=== PATIENT | female | born 1975 | race Hispanic/Latino ===

== ENCOUNTER 2018-04-29 10:39 | Outpatient (CLI) | payer OTHER ==
--- NOTE | 2018-05-04 10:41 | MMO ---
BILATERAL DIGITAL SCREENING MAMMOGRAMS: Date: 04/29/18 This patient's mammogram was interpreted with the assistance of computer-aided detection. Comparison made with exams of 10/01/17 and 04/23/16. FINDINGS: There are scattered fibroglandular densities. No suspicious masses, calcifications, or architectural distortion are seen. A few benign-appearing calcifications are noted. IMPRESSION: BIRADS 2: Benign Finding(s) Return to annual mammographic screening. POS: [facility]
== END 2018-04-29 10:40 | disposition home or self-care (01) ==
LOC: SCSMAMMO 10:39
PROVIDERS: ATTEND Family Medicine
DX: Z12.31 Encounter for screening mammogram for malignant neoplasm of breast (principal)
CPT/HCPCS: 77067

== ENCOUNTER 2018-05-03 22:30 | Inpatient (IN) | payer OTHER ==
[2018-05-03 22:56] LABS: #Basophils 0.1 thou/uL (0.0-0.2); #Eosinphils 0.1 thou/uL (0.0-0.7); #Lymphocytes 3.3 thou/uL (1.20-3.40); #Monocytes 0.4 thou/uL (0.11-0.59); #Neutrophils 4.6 thou/uL (1.40-6.50); %Basophils 0.7 % (0.0-1.0); %Eosinophils 1.6 % (0.0-10.0); %Lymphocytes 38.5 % (21.0-51.0); %Monocytes 5.2 % (0.0-10.0); %Neutrophils 54.1 % (42.0-75.0); Hemoglobin 14.7 g/dL (12.0-16.0); Mean Corpuscular HGB CONC 34.2 g/dL (32.0-36.0); Mean Corpuscular Hemoglobin 31.2 pg (27.0-31.0); Mean Platelet Volume 8.5 fL (7.4-10.4); Platelet Count 282 thou/uL (130-400); RBC Distribution Width 12.1 % (11.5-14.5); Red Blood Cell (RBC) Count 4.73 mill/uL (4.20-5.40); White Blood Cell (WBC) Count 8.5 thou/uL (4.8-10.8)
[2018-05-03 23:21] LABS: ALT (SGPT) 34 U/L (8-55); AST (SGOT) 26 U/L (5-34); Albumin 4.4 g/dL (3.5-5.0); Alkaline Phosphatase 132 U/L (40-150); Anion Gap 12 mmol/L (10-20); BUN (Urea Nitrogen) 7 mg/dL (7.0-18.7); Bilirubin, Total 0.5 mg/dL (0.2-1.2); CK (CPK) 112 U/L (29-168); Calc. Creatinine Clearance 0 mL/min (70-130); Carbon Dioxide 25 mmol/L (22-29); Chloride 108 mmol/L (98-107); Estimated GFR-MDRD 87; Globulin 3.4 g/dL (2.4-3.5); Glucose 97 mg/dL (70-105); Potassium 3.6 mmol/L (3.5-5.1); Protein, Total 7.8 g/dL (6.0-8.3); Sodium 141 mmol/L (136-145)
[2018-05-03 23:26] LABS: CKMB 0.8 ng/mL (0-6.6); Troponin I Less than 0.010 ng/mL (< 0.028)
--- NOTE | 2018-05-03 23:46 | RAD ---
ONE VIEW CHEST: HISTORY: Pain. COMPARISON: None. FINDINGS: Normal cardiac silhouette. Pulmonary vessels and hilum are normal. Costophrenic angles are clear. Lung volumes are slightly diminished, likely due to poor inspiratory effort. No consolidation or mas s. No pneumothorax or osseous abnormalities. IMPRESSION: No acute cardiopulmonary process. POS: [facility]
[2018-05-04] MEDS ORDERED: Enoxaparin Sodium 80 MG/0.8 ML SYRINGE ONE (02:23)
[2018-05-04 02:59] LABS: PTT 27.8 SEC (22.9-36.1); Prothrombin Time 13.5 SEC (12.0-14.7)
[2018-05-04] MEDS ORDERED: Ondansetron ODT 4 MG TAB ONE ×2 (02:59→03:23)
--- NOTE | 2018-05-04 08:45 | HP ---
DATE OF ADMISSION: 05/04/2018 CHIEF COMPLAINT: Chest pain, shortness of breath. HISTORY OF PRESENT ILLNESS: This is a 42-year-old female patient with a past history of fibromyalgia , who presented to the emergency department with sudden onset of shortness of breath and left-sided c hest pain. The patient states that she has been in her usual state of health when yesterday afternoo n she developed nausea and dry mouth. The symptoms quickly have progressed to shortness of breath an d chest pain on her left chest. The shortness of breath continued to worsen. She developed left-bhavna ed chest pain, left shoulder pain, presented to the emergency department for evaluation. In the ER, she was found to have a pulmonary embolism per Radiology as well as a left breast mass. The patient states that her symptoms improved with the morphine. She is now comfortable and now being admitted f or further evaluation and treatment. PAST MEDICAL HISTORY: Irritable bowel, fibromyalgia, possible sleep apnea. MEDICATIONS: Include tramadol p.r.n., ropinirole p.r.n. restless legs. PAST SURGICAL HISTORY: Cholecystectomy, hysterectomy. SOCIAL HISTORY: No smoking. Occasional alcohol and occasional marijuana. She is with child julian. FAMILY HISTORY: She admits a maternal aunt with clotting problems with blood clots in her legs, but no heart disease, no diabetes. No known cancer history in her family. REVIEW OF SYSTEMS: As per the history of present illness. General: She denies any recent fevers, c hills, or recent illness. HEENT: Denies headache, visual or hearing changes. Cardiac: As per the history of present illness. No palpitations. Pulmonary: No cough or hemoptysis. Gastrointestinal: No nausea, vomiting, abdominal pain, melena, hematochezia. Genitourinary: Denies dysuria or hemat uria. Neurologic: Denies weakness, seizures, syncope. PHYSICAL EXAMINATION: VITAL SIGNS: Temperature 98.1, pulse of 73, respirations 14, blood pressure 117/65, pulse ox is 96% on room air. GENERAL: She is awake and alert, in no acute distress. Speech is clear. Mucosa is moist. NECK: Supple. HEART: Regular rate and rhythm. LUNGS: With diminished breath sounds, but clear. ABDOMEN: Soft. EXTREMITIES: No calf tenderness. No clubbing or cyanosis, no edema. LABORATORY DATA: Chest x-ray was normal. EKG reveals normal sinus rhythm. Cardiac enzymes are nega tive. Sodium 141, potassium 3.6, chloride 108, CO2 of 25, BUN and creatinine 7 and 0.73, serum gluco se of 97. White blood cell count 8,500, hemoglobin hematocrit 14.7 and 43.1, platelets of 282. PT a nd PTT were normal. D-dimer was elevated at 1.34. Again, CT angiogram, per the emergency room physi yusuf, revealed pulmonary embolism as well as a breast mass. ASSESSMENT AND PLAN: This is a 42-year-old female with sudden onset of chest pain and shortness of b reath consistent with pulmonary embolism. 1. Pulmonary embolism. We will continue subcutaneous Lovenox. Consult Pulmonary for evaluation. O btain a thrombosis panel as well as venous Doppler. 2. Breast mass. We will consult Surgery for evaluation, likely etiology of hypercoagulable state. W e will obtain a recent mammogram report from last week as well as last year's from [facility].
--- NOTE | 2018-05-04 08:54 | CT ---
PRELIMINARY REPORT/[facility]/EMERGENTY AFTER-HOURS PROCEDURE CT Angiography Chest With Intravenous Contrast CLINICAL HISTORY: 42 years old, female; Pain; Chest pain; Patient HX: F42 presents to ed C/O chest pain onset 16: 00 wi th nausea and radiation to her shoulder and face. She reports sweating. She reports SOB. She denies h /o dvt. Patient currently uses estrogen cream. She reports h/o fibromyalgia. TECHNIQUE: Axial computed tomographic angiography images of the chest with intravenous contrast using pulmonary embolism protocol. MIP reconstructed images were created and reviewed. COMPARISON: No relevant prior studies available. FINDINGS: Pulmonary arteries: Pulmonary embolus within the right upper lobe anterior segmental pulmonary artery extending into subsegmental branches (axial image 33, right oblique images 5-22). Aorta: No acute findings. No thoracic aortic aneurysm. Lungs: No mass. No consolidation. Dependent groundglass atelectatic opacities. Pleural space: No effusion. No pneumothorax. Heart: No definite evidence of right heart strain. No significant cardiomegaly. No pericardial effusion. Bones/joints: No acute fracture. Soft tissues: Right upper breast asymmetric density. Lymph nodes: No lymphadenopathy. IMPRESSION: Pulmonary embolism described above. Right upper breast asymmetric density. Recommend mammographic correlation. THIS REPORT CONTAINS FINDINGS THAT MAY BE CRITICAL TO PATIENT CARE. The findings were verbally commun icated via telephone conference with GERMAN ESTEVES at 2:07 AM CDT on 05/04/2018. The findings were ackn owledged and understood. Thank you for allowing us to participate in the care of your patient. Dictated and Authenticated by: Jensen Frazier MD 05/04/2018 2:18 AM Central Time ([place] & [place]) FINAL REPORT CT PULMONARY ANGIOGRAM WITH IV CONTRAST AND 3D POSTPROCESSING. I agree with the preliminary report given by Dr. Frazier of [facility]. POS: [facility]
[2018-05-04 09:11] LABS: PTT 36.3 SEC (22.9-36.1); Prothrombin Time 13.5 SEC (12.0-14.7)
[2018-05-04] MEDS: Enoxaparin Sodium 80 MG/0.8 ML SYRINGE SC SCH ×2 (09:20→21:15)
--- NOTE | 2018-05-04 12:53 | CON ---
DATE OF CONSULTATION: 05/04/2018 Ms. Martínez is a pleasant 42-year-old female who presented with left shoulder discomfort associated with shortness of breath. She was found to have a right upper lobe pulmonary embolus. There was questionable asymmetric density in one of her breasts that had to be worked up. Her only complaint is mild dyspnea. She says she feels a little better than when she was admitted. PAST MEDICAL HISTORY: 1. Remarkable for irritable bowel. 2. Fibromyalgia. 3. Reported possible sleep apnea. PAST SURGICAL HISTORY: History of a cholecystectomy and hysterectomy. SOCIAL HISTORY: She is a nonsmoker, occasionally drinks, occasionally smokes marijuana. She is . Her son was asleep on the couch when I rounded on her. FAMILY HISTORY: Positive for an aunt with clot issues. REVIEW OF SYSTEMS: Ten points otherwise negative. PHYSICAL EXAMINATION: GENERAL: She is in no distress. VITAL SIGNS: Heart rate 63. She is afebrile, respiratory rate is 18, oximetry is 100% on room air. VITAL SIGNS: Blood pressure 110/65. HEENT: Pupils are equal. NECK: Supple, no lymphadenopathy. LUNGS: Clear. HEART: Regular rhythm, no S3, no murmur. ABDOMEN: Soft and nontender. EXTREMITIES: Without clubbing, cyanosis, or edema. NEUROLOGIC: Grossly nonfocal. Chest radiograph and chest CT have been reviewed. IMPRESSION: 1. Pulmonary emboli. 2. ? Breast abnormality. I did not do a breast exam. Mammogram was recommended. PLAN: Lovenox and then conversion to oral anticoagulants after 24-48 hours. This is a 50 minute consult with greater than 50% of the time spent on the unit with coordination of care. PAULA
--- NOTE | 2018-05-04 13:27 | ULT ---
BILATERAL LOWER EXTREMITY VENOUS DOPPLER ULTRASOUND: Date: 05/04/18 HISTORY: Pulmonary embolism. TECHNIQUE: Castle scale ultrasound with color flow and spectral Doppler imaging of the deep venous systems of the lower extremities was performed bilaterally. FINDINGS: There is good flow, compression, and augmentation noted in the common femoral, femoral, deep femoral, popliteal, posterior tibial, and greater saphenous veins on either side. IMPRESSION: No evidence of deep venous thrombosis in either lower extremity. POS: [facility]
[2018-05-04] MEDS ORDERED: ISOVUE-370 76%-LOCM 1 ML ONE (13:44)
[2018-05-04] MEDS: Ondansetron HCl/PF 4 MG/2 ML Vial IVP PRN (13:54)
[2018-05-04 15:45] VITALS: BMI 33.0
--- NOTE | 2018-05-05 08:02 | PRG ---
DATE OF SERVICE: 05/05/2018 SUBJECTIVE: The patient is feeling some better than yesterday. She was less short of breath. She d oes complain of on and off chest pains. She has some dyspnea when she is walking in the room. She c omplains of a migraine headache from last night. No cough, no hemoptysis, no leg pain. PHYSICAL EXAMINATION: VITAL SIGNS: Temperature 98.5, pulse of 70, respirations 14 and comfortable, pulse ox is 97% on 2 li ters, 98% on room air, blood pressure 117/56. GENERAL: She is awake and alert. She is uncomfortable due to a migraine with photophobia. HEENT: Mucosa is moist. NECK: Supple. HEART: Regular rate and rhythm. LUNGS: Clear bilaterally. ABDOMEN: Soft. EXTREMITIES: No edema. No calf tenderness. LABORATORY DATA: Reviewed. Homocysteine level was low at 4.2. Thrombosis panel is pending. Contin ues to have elevated D-dimer. Venous Dopplers were negative. ASSESSMENT AND PLAN: This is a 42-year-old female with right pulmonary emboli and a breast mass. 1. Pulmonary embolism. We will transition to oral Xarelto. Continue plan per Dr. Benites. It seems like she can wean off of oxygen at this time. 2. Breast mass. She was evaluated by Dr. Moe who recommends outpatient further evaluation and p ossible ultrasound, possible biopsy. Both mammograms from last year and this year have been reported as negative and benign. 3. Migraine headache. We will start her home treatment of Fioricet p.r.n. pain. DISPOSITION: Hopefully home later today if she tolerates the transition to Xarelto and will disconti tr Calixto at that time.
[2018-05-05] MEDS: Ondansetron HCl/PF 4 MG/2 ML Vial IVP PRN (08:03)
[2018-05-05] MEDS ORDERED: Enoxaparin Sodium 80 MG/0.8 ML SYRINGE SC SCH (09:00)
[2018-05-05] MEDS: Rivaroxaban 15 MG TAB PO SCH ×2 (09:54→20:48)
[2018-05-05] MEDS: Fioricet 325/50/40 mg Tablet PO PRN ×2 (10:29→14:25)
--- NOTE | 2018-05-05 16:27 | PRG ---
DATE OF SERVICE: 05/05/2018 SUBJECTIVE: She says she is feeling better. She has been started on Xarelto. She has no new complaints. Her feeling in her chest has resolved. OBJECTIVE: VITAL SIGNS: She says she is afebrile, heart rate 67, respiratory rate 20, oximetry is 99 on 2 liter s, blood pressure 96/54. LUNGS: Clear. IMPRESSION: Thromboembolic disease. At some point in time, she needs a hypercoagulable panel given that she is 42 years of age. We will continue to follow. She probably will be stable to go home tomorrow. Her Doppler venography did not show any evidence of residual clots in her legs.
[2018-05-06 05:35] LABS: Hemoglobin 14.3 g/dL (12.0-16.0); Platelet Count 237 thou/uL (130-400)
[2018-05-06] MEDS: Rivaroxaban 15 MG TAB PO SCH (08:46)
[2018-05-06] MEDS: Ondansetron HCl/PF 4 MG/2 ML Vial IVP PRN (09:03)
--- NOTE | 2018-05-06 10:30 | DIS ---
DATE OF ADMISSION: 05/04/2018 DATE OF DISCHARGE: 05/06/2018 ADMISSION DIAGNOSES: Acute pulmonary embolism and breast mass. DISCHARGE DIAGNOSES: Acute pulmonary embolism and questionable breast mass. CONSULTATIONS: Dr. Moe for Surgery and Dr. Benites for Pulmonary. PROCEDURES: CT angiogram, chest x-ray, venous Doppler, and IV anticoagulation. HOSPITAL COURSE: This is a 42-year-old female patient with prior history of fibromyalgia, irritable bowel, possible sleep apnea. She was recently started on topical estrogen replacement, presented to the Emergency Department with sudden onset of chest pain and shortness of breath. In the Emergency D epartment, she was found to have a right-sided pulmonary embolism as well as a left breast mass. She was admitted, she was started on subcutaneous Lovenox for anticoagulation. She was hemodynamically stable. She did not require oxygen therapy and her pulse ox remained stable throughout her hospitali zation. Her estrogen replacement was discontinued and told not to be restarted. She transitioned to oral anticoagulation on a day 2. Dr. Benites saw the patient in evaluation and agreed with a thromboe mbolic workup. Her venous Dopplers were negative. Again, the patient remained clinically stable and she was seen by Dr. Moe for the breast mass and he recommended an outpatient followup for possib le ultrasound guided biopsy if there was a breast mass. Old studies were reviewed, she had a mammogr am a year ago at the [facility], which was negative and a mammogram one week prio r to admission, which was negative as well. The patient was clinically stable to go home on the day of discharge. DISCHARGE PHYSICAL EXAMINATION: VITAL SIGNS: Temperature 98.0, pulse is 70, respirations 16, blood pressure 107/62, and pulse ox is 94% to 98% on room air. GENERAL: She is awake and alert, in no acute distress. She is walking in the room without difficult y. No conversational dyspnea. NECK: Supple. HEART: Regular rate and rhythm. LUNGS: Clear bilaterally. ABDOMEN: Soft. EXTREMITIES: With no edema. LABORATORY DATA: Reviewed. D-dimer was elevated. PTT was elevated at 36, other thrombosis panel is pending. She did have a low homocysteine at 4.21. DISCHARGE MEDICATIONS: Include, Fioricet p.r.n. migraine, Xarelto 15 mg b.i.d. for 21 days and then 20 mg daily for 6 months, and Zofran p.r.n. nausea and vomiting. FOLLOWUP INSTRUCTIONS: The patient to follow up in my office in 1 week. Follow up with Dr. Benites in 2-3 weeks. Again, she is to discontinue any hormone replacement and not to start smoking.
[2018-05-06 11:20] VITALS: BP 110/59; TEMP 97.8
[2018-05-06 16:20] LABS: Factor VIII Test 234.7 % ACTIVE (56-157)
[2018-05-06 16:40] LABS: HEX PHOS LA Tube 1 56.3 SEC; HEX PHOS LA Tube 2 54.8 SEC; Hexagonal Phospholipid Neut 1.5 SEC (0-8.0)
[2018-05-06 19:13] LABS: Cardiolipin IgA Ab 4.8 APL-U/mL (<14 Negative); Cardiolipin IgG Ab 0.9 GPL-U/mL (<10 Negative); Cardiolipin IgM Ab Less than 0.8 MPL-U/mL (<10 Negative); EliA APS New Method **** NEW METHOD ****
[2018-05-07 09:13] LABS: Protein C Activity 117 % (78-152)
--- NOTE | 2018-05-09 13:25 | EKG ---
Test Reason : Blood Pressure : / mmHG Vent. Rate : 071 BPM Atrial Rate : 071 BPM P-R Int : 148 ms QRS Dur : 090 ms QT Int : 398 ms P-R-T Axes : 047 000 003 degrees QTc Int : 432 ms Normal sinus rhythm Normal ECG Confirmed by GERMAN ESTEVES M.D. ([id number]), editorial writer NAINA MATTHEWS ([id number]) on 05/09/2018 1:25:07 PM Referred By: Confirmed By:GERMAN ESTEVES M.D.
== END 2018-05-06 12:16 | disposition home or self-care (01) | DRG 176 ==
LOC: ERS 22:30 → ERHOLD 05-04 02:49 → 2NO 05-04 08:55
PROVIDERS: ADMIT Family Medicine; ATTEND Family Medicine
DX: I26.99 Other pulmonary embolism without acute cor pulmonale (principal); N63.0 Unspecified lump in unspecified breast; G43.909 Migraine, unspecified, not intractable, without status migrainosus; G47.30 Sleep apnea, unspecified; K58.9 Irritable bowel syndrome, unspecified; M79.7 Fibromyalgia
CPT/HCPCS: 36415; 71045; 71275; 80053; 81240; 81241; 82553; 82565; 83090; 84484; 85014; 85018; 85025; 85049; 85240; 85300; 85303; 85305; 85307; 85379; 85598; 85610; 85730; 86147; 93005; 93970; 96361; 96372; 96374; 96376; A4216; J1650; J2270; J2405; Q0162

== ENCOUNTER 2018-05-20 16:05 | Emergency (ER) | payer OTHER ==
[2018-05-20] MEDS ORDERED: Ondansetron ODT 4 MG TAB ONE (16:55)
[2018-05-20 17:20] LABS: #Basophils 0.1 thou/uL (0.0-0.2); #Eosinphils 0.2 thou/uL (0.0-0.7); #Lymphocytes 2.8 thou/uL (1.20-3.40); #Monocytes 0.4 thou/uL (0.11-0.59); %Basophils 0.8 % (0.0-1.0); %Lymphocytes 33.5 % (21.0-51.0); %Monocytes 4.4 % (0.0-10.0); %Neutrophils 59.2 % (42.0-75.0); Hemoglobin 14.1 g/dL (12.0-16.0); Mean Corpuscular HGB CONC 33.2 g/dL (32.0-36.0); Mean Corpuscular Hemoglobin 30.5 pg (27.0-31.0); Mean Corpuscular Volume 91.7 fL (78.0-98.0); Mean Platelet Volume 8.6 fL (7.4-10.4); Platelet Count 304 thou/uL (130-400); Red Blood Cell (RBC) Count 4.64 mill/uL (4.20-5.40); White Blood Cell (WBC) Count 8.4 thou/uL (4.8-10.8)
--- NOTE | 2018-05-20 17:23 | RAD ---
PORTABLE AP CHEST X-RAY 05/20/18 HISTORY: Chest pain with deep breathing. COMPARISON: 05/03/18. FINDINGS: The cardiac silhouette is magnified by projection but stable in size. The pulmonary vasculature is wi thin normal limits. Lungs are clear. There has been no interval change from the prior exam. IMPRESSION: No acute cardiopulmonary process. POS: [facility]
[2018-05-20 17:40] LABS: ALT (SGPT) 38 U/L (8-55); AST (SGOT) 29 U/L (5-34); Albumin 4.8 g/dL (3.5-5.0); Alkaline Phosphatase 129 U/L (40-150); Anion Gap 13 mmol/L (10-20); BUN (Urea Nitrogen) 12 mg/dL (7.0-18.7); Bilirubin, Total 0.4 mg/dL (0.2-1.2); Calc. Creatinine Clearance 0 mL/min (70-130); Calcium 10.1 mg/dL (7.8-10.44); Carbon Dioxide 26 mmol/L (22-29); Chloride 105 mmol/L (98-107); Estimated GFR-MDRD 80; Globulin 3.4 g/dL (2.4-3.5); Glucose 92 mg/dL (70-105); Potassium 3.8 mmol/L (3.5-5.1); Protein, Total 8.2 g/dL (6.0-8.3); Sodium 140 mmol/L (136-145)
[2018-05-20 17:45] LABS: CKMB 0.6 ng/mL (0-6.6); Troponin I Less than 0.010 ng/mL (< 0.028)
[2018-05-20 18:08] LABS: Pregnancy Test - Urine (BHCG) Negative (Negative); Pregu Control Background? CLEAR/WHITE (CLR/WHITE); Pregu Control Bar Appear? YES (CONTROL BAR); Specific Gravity 1.012 (1.002-1.036)
[2018-05-20] MEDS ORDERED: Fentanyl 100 MCG/2 ML VIAL ONE (20:08)
[2018-05-20] MEDS ORDERED: Acetaminophen/Codeine 30-300mg Tablet ONE (20:55)
--- NOTE | 2018-05-20 21:29 | CT ---
CTA OF THE CHEST WITH CONTRAST 05/20/18 COMPARISON: 05/04/18 HISTORY: Chest pain and shortness of breath. TECHNIQUE: Multiple contiguous axial images were obtained in a CTA of the chest with contrast. 3D oblique MIP re formats and direct coronal reformats were performed. FINDINGS: The pulmonary arteries are well opacified without filling defects to suggest pulmonary emboli. Global cardiomegaly is seen. No hilar or mediastinal lymphadenopathy are present. No pneumothorax or pleural effusion are seen. No focal infiltrates are seen. No suspicious pulmonary nodules are present. The patient is status post cholecystectomy. There is fatty infiltration of the liver. The other visua lized subdiaphragmatic structures are unremarkable. The chest wall soft tissues are unremarkable. Deg enerative changes are seen in the spine. IMPRESSION: 1. No evidence of pulmonary thromboembolism. 2. Fatty liver. POS: [facility]
[2018-05-20] MEDS ORDERED: Ketorolac Tromethamine 30 MG/ML VIAL ONE (21:42)
== END 2018-05-20 22:33 | disposition home or self-care (01) ==
LOC: ERS 16:05
DX: R07.89 Other chest pain (principal); G47.30 Sleep apnea, unspecified; Z79.899 Other long term (current) drug therapy; Z86.711 Personal history of pulmonary embolism
CPT/HCPCS: 71045; 71275; 80053; 81025; 82553; 84484; 85025; 93005; 96361; 96374; 96375; J1885; J2270; J3010; Q0162

== ENCOUNTER 2018-06-24 09:28 | Outpatient (CLI) | payer OTHER ==
--- NOTE | 2018-06-24 11:03 | RAD ---
PA AND LATERAL CHEST: History: Dyspnea. FINDINGS: The heart size is normal. The lungs are expanded without focal areas of consolidation, pneumothoraces or pleural effusions. No acute osseous abnormalities seen. IMPRESSION: No radiographic evidence of acute cardiopulmonary process. POS: [facility]
== END 2018-06-24 09:29 | disposition home or self-care (01) ==
LOC: RAD 09:28
PROVIDERS: ATTEND Internal Medicine Critical Care Medicine
DX: R06.00 Dyspnea, unspecified (principal)
CPT/HCPCS: 71046

== ENCOUNTER 2018-09-10 17:39 | Emergency (ER) | payer OTHER ==
[~2018-09-10 17:39] MED LIST: Iopamidol 370 76% 100 ML VIAL ONE
[2018-09-10 18:37] LABS: ALT (SGPT) 28 U/L (8-55); AST (SGOT) 24 U/L (5-34); Albumin 4.6 g/dL (3.5-5.0); Alkaline Phosphatase 125 U/L (40-150); Anion Gap 12 mmol/L (10-20); BUN (Urea Nitrogen) 5 mg/dL (7.0-18.7); Bilirubin, Total 0.2 mg/dL (0.2-1.2); CK (CPK) 86 U/L (29-168); Calc. Creatinine Clearance 0 mL/min (70-130); Calcium 9.8 mg/dL (7.8-10.44); Carbon Dioxide 24 mmol/L (22-29); Chloride 106 mmol/L (98-107); Estimated GFR-MDRD 86; Globulin 3.6 g/dL (2.4-3.5); Glucose 100 mg/dL (70-105); Lipase 69 U/L (8-78); Potassium 4.1 mmol/L (3.5-5.1); Protein, Total 8.2 g/dL (6.0-8.3); Sodium 138 mmol/L (136-145)
[2018-09-10 18:41] LABS: CKMB 0.5 ng/mL (0-6.6); Troponin I Less than 0.010 ng/mL (< 0.028)
[2018-09-10] MEDS ORDERED: Ondansetron ODT 8 MG TAB ONE (19:14)
[2018-09-10] MEDS ORDERED: Ondansetron ODT 4 MG TAB ONE (19:15)
[2018-09-10] MEDS ORDERED: Ketorolac Tromethamine 30 MG/ML VIAL ONE (19:34)
--- NOTE | 2018-09-10 21:09 | CT ---
CTA OF THE THORAX UTILIZING IV CONTRAST WITH PE PROTOCOL AND 3D REFORMATTED IMAGING 09/10/18 INDICATION: Chest pain. COMPARISON: Prior exam dated 05/10/18. FINDINGS: No central or segmental pulmonary embolus is evident. The lungs are clear. No pleural effusion or pne umothorax is evident. No definite enlarged lymph nodes are present. There is slight asymmetry of the densities within the right and left breast are similar appearing to the comparison exam. The heterogeneity is slightly more prominent within the superior aspect of the r ight breast. This may be normal for the patient. The patient had a normal screening mammogram evaluat ion dated 04/29/18. The visualized upper abdomen demonstrates fatty infiltration of the liver. The gallbladder is surgica lly absent. Adrenal glands are normal appearing. There is mild scattered degenerative change. IMPRESSION: 1. No central or segmental pulmonary embolus. 2. Fatty infiltration of the liver. 3. Cholecystectomy. POS: [facility]
--- NOTE | 2018-09-10 22:06 | RAD ---
CHEST ONE VIEW: 09/10/18 INDICATION: History of chest pain. COMPARISON: Prior exam dated 05/20/18. IMPRESSION: No acute cardiopulmonary abnormality. The examination is not appreciably changed from the comparison. POS: [facility]
== END 2018-09-10 19:55 | disposition home or self-care (01) ==
LOC: ERS 17:39
DX: K76.0 Fatty (change of) liver, not elsewhere classified (principal); R07.89 Other chest pain; K58.9 Irritable bowel syndrome, unspecified; Z79.01 Long term (current) use of anticoagulants; Z86.711 Personal history of pulmonary embolism
CPT/HCPCS: 36415; 71045; 71275; 80053; 82550; 82553; 83690; 84484; 85730; 93005; 96372; J1885; Q0162

== ENCOUNTER 2018-09-28 19:45 | Emergency (ER) | payer OTHER ==
[2018-09-28 20:55] LABS: #Basophils 0.1 thou/uL (0.0-0.2); #Eosinphils 0.1 thou/uL (0.0-0.7); #Lymphocytes 2.8 thou/uL (1.20-3.40); #Monocytes 0.3 thou/uL (0.11-0.59); #Neutrophils 5.7 thou/uL (1.40-6.50); %Basophils 0.9 % (0.0-1.0); %Eosinophils 1.1 % (0.0-10.0); %Lymphocytes 30.9 % (21.0-51.0); %Monocytes 3.8 % (0.0-10.0); %Neutrophils 63.2 % (42.0-75.0); Hemoglobin 14.3 g/dL (12.0-16.0); Mean Corpuscular HGB CONC 33.6 g/dL (32.0-36.0); Mean Corpuscular Hemoglobin 31.2 pg (27.0-31.0); Mean Corpuscular Volume 92.7 fL (78.0-98.0); Mean Platelet Volume 8.4 fL (7.4-10.4); Platelet Count 341 thou/uL (130-400); Red Blood Cell (RBC) Count 4.58 mill/uL (4.20-5.40)
[2018-09-28] MEDS ORDERED: Lorazepam 2 MG/ML VIAL ONE (21:05)
[2018-09-28] MEDS ORDERED: Fentanyl 100 MCG/2 ML VIAL ONE (21:05)
[2018-09-28] MEDS ORDERED: Ketorolac Tromethamine 30 MG/ML VIAL ONE (21:05)
--- NOTE | 2018-09-28 21:05 | RAD ---
PA AND LATERAL CHEST: HISTORY: Chest pain. FINDINGS: Heart size and mediastinum are within normal limits. Lungs appear clear of any infiltrative process. IMPRESSION: No active intrathoracic disease. POS: [facility]
[2018-09-28 21:14] LABS: ALT (SGPT) 28 U/L (8-55); AST (SGOT) 23 U/L (5-34); Albumin 4.5 g/dL (3.5-5.0); Alkaline Phosphatase 120 U/L (40-150); Anion Gap 15 mmol/L (10-20); BUN (Urea Nitrogen) 10 mg/dL (7.0-18.7); Bilirubin, Total 0.5 mg/dL (0.2-1.2); CK (CPK) 104 U/L (29-168); Calc. Creatinine Clearance 0 mL/min (70-130); Calcium 10.1 mg/dL (7.8-10.44); Carbon Dioxide 24 mmol/L (22-29); Chloride 105 mmol/L (98-107); Estimated GFR-MDRD 81; Globulin 3.6 g/dL (2.4-3.5); Glucose 92 mg/dL (70-105); Lipase 64 U/L (8-78); Potassium 3.6 mmol/L (3.5-5.1); Protein, Total 8.1 g/dL (6.0-8.3); Sodium 140 mmol/L (136-145)
[2018-09-28 21:18] LABS: CKMB 0.8 ng/mL (0-6.6); Troponin I Less than 0.010 ng/mL (< 0.028)
== END 2018-09-28 21:52 | disposition home or self-care (01) ==
LOC: ERS 19:45
DX: R07.89 Other chest pain (principal); Z86.711 Personal history of pulmonary embolism; G47.30 Sleep apnea, unspecified; Z79.01 Long term (current) use of anticoagulants; Z79.899 Other long term (current) drug therapy
CPT/HCPCS: 36415; 71046; 80053; 82553; 83690; 84484; 85025; 85379; 93005; 96374; 96375; J1885; J2060; J3010

== ENCOUNTER 2019-05-05 09:52 | Outpatient (CLI) | payer OTHER ==
--- NOTE | 2019-05-05 12:06 | MMO ---
Bilateral MAMMO Bilat Screen [facility]. CLINICAL HISTORY: Patient is 43 years old and is seen for screening. The patient has no family history of breast cancer. The patient has no personal history of cancer. VIEWS: The views performed were: bilateral craniocaudal with tomosynthesis and bilateral mediolateral oblique with tomosynthesis. FILMS COMPARED: The present examination has been compared to prior imaging studies performed at 04/29/2018, and at [facility] on 10/01/2017. MAMMOGRAM FINDINGS: Finding 1: There are stable benign appearing calcifications seen in both breasts. Finding 2: There are stable benign appearing densities seen in both breasts. There are no suspicious masses, suspicious calcifications, or new areas of architectural distortion. IMPRESSION: THERE IS NO MAMMOGRAPHIC EVIDENCE OF MALIGNANCY. A ROUTINE FOLLOW-UP MAMMOGRAM IN 1 YEAR IS RECOMMENDED. THE RESULTS OF THIS EXAM WERE SENT TO THE PATIENT. ACR BI-RADS Category 2 - Benign finding MAMMOGRAPHY NOTE: 1. A negative mammogram report should not delay a biopsy if a dominant of clinically suspicious mass is present. 2. Approximately 10% to 15% of breast cancers are not detected by mammography. 3. Adenosis and dense breasts may obscure an underlying neoplasm.
== END 2019-05-05 09:53 | disposition home or self-care (01) ==
LOC: BICMAMMO 09:52
PROVIDERS: ATTEND Family Medicine
DX: Z12.31 Encounter for screening mammogram for malignant neoplasm of breast (principal)
CPT/HCPCS: 77063; 77067

== ENCOUNTER 2019-06-30 07:08 | Day surgery (SDC) | payer OTHER ==
[2019-06-29 12:25] VITALS: BMI 29.6
--- NOTE | 2019-06-30 00:18 | HP ---
HISTORY OF PRESENT ILLNESS: This is a 43-year-old female, comes for an EGD because history of dysphagia. The patient has dysphagia over the last several years often. The dysphagia occurs often. The dysphagia occurs mostly to solids food. She feels the meals hang up in the esophagus. The patient drinks water to make it go down. At times, water comes up. The patient comes to the ED because of dysphagia. ALLERGIES: NORCO. SOCIAL HISTORY: The patient does not smoke, but drinks alcohol socially. MEDICAL ILLNESSES: 1. Obesity. 2. Sleep apnea. 3. Fibromyalgia. 4. Chronic acid reflux. 5. IBS constipation. 6. Mild asthma. 7. Pulmonary embolus in 2018. 8. Anxiety. PHYSICAL EXAMINATION: VITAL SIGNS: Weight is 166 pounds. Pulse is 74, blood pressure 120/78. HEENT: Conjunctivae clear. CARDIOVASCULAR SYSTEM: First and second heart sounds heard. LUNGS: Clear to auscultation. ABDOMEN: Soft. No organomegaly. No tenderness. No masses. ADMITTING DIAGNOSIS: Dysphagia. PLAN: EGD and possible dilation. Job ID: [id number]
[2019-06-30] MEDS ORDERED: Fentanyl 100 MCG/2 ML VIAL ONE (10:41)
[2019-06-30] MEDS ORDERED: PROPOFOL 200 MG/20 ML VIAL ONE (16:36)
--- NOTE | 2019-06-30 19:37 | OP ---
DATE OF PROCEDURE: 06/30/2019 PROCEDURE PERFORMED: 1. Esophagogastroduodenoscopy with biopsy. 2. Esophageal dilation with a 48-[place] dilator. PREOPERATIVE DIAGNOSES: Dysphagia, chronic acid reflux. POSTOPERATIVE DIAGNOSES: 1. Normal vocal cords. 2. No esophageal narrowing seen and no esophagitis seen. 3. Mild antral gastritis. DESCRIPTION OF PROCEDURE: The patient was placed on her left lateral position and was given sedation by Anesthesia Department. A Pentax video gastroscope under direct vision passed down the oropharynx past the GE junction into the stomach and subsequently into the descending duodenum. The vocal cords appeared very healthy. The esophageal lumen appeared wide open. No esophagitis seen. There were no findings of any eosinophilic esophagitis seen. She had small hiatal hernia. Retroflexion failed to show any pathology in the fundus or cardia. The gastric body, no pathology. The gastric antrum showed mild antral gastritis. The duodenal bulb, descending duodenum, no pathology. Biopsies obtained in the gastric antrum and gastric body. Because of history of dysphagia, empiric dilation was carried out with a 48- [place] dilator. This was easily passed down into the stomach without any resistance. DISCHARGE PLANNING: This is a 43-year-old [place] female, who came for EGD with dysphagia. The EGD showed no esophagitis and no esophageal stricture. She had mild antral gastritis and biopsy of the antrum done. She also had empiric dilation with a 48-[place] dilator. This was advanced to stomach without resistance. DISCHARGE RECOMMENDATIONS: 1. The patient advised to call me if she develops any chest discomfort, hematemesis, melena, or fever. 2. To come back to clinic in 2 weeks. Job ID: [id number] [facility]
== END 2019-06-30 11:30 | disposition home or self-care (01) ==
LOC: SDC 07:08
PROVIDERS: ATTEND Internal Medicine Gastroenterology
PROC: 0DB68ZZ Excision of Stomach, Via Natural or Artificial Opening Endoscopic (ICD-10-PCS; principal; 2019-06-30)
PROC: 0D757ZZ Dilation of Esophagus, Via Natural or Artificial Opening (ICD-10-PCS; principal; 2019-06-30)
DX: K29.50 Unspecified chronic gastritis without bleeding (principal); G47.30 Sleep apnea, unspecified; F41.9 Anxiety disorder, unspecified; K21.9 Gastro-esophageal reflux disease without esophagitis; J45.909 Unspecified asthma, uncomplicated; E66.9 Obesity, unspecified; Z68.29 Body mass index [BMI] 29.0-29.9, adult; Z79.899 Other long term (current) drug therapy; Z87.891 Personal history of nicotine dependence; Z88.5 Allergy status to narcotic agent; Z88.6 Allergy status to analgesic agent
CPT/HCPCS: 88305; 88312; J2704; J3010

== ENCOUNTER 2019-08-13 18:50 | Emergency (ER) | payer OTHER, SELFPAY ==
[2019-08-13] MEDS ORDERED: Fentanyl 100 MCG/2 ML VIAL ONE (19:53)
[2019-08-13] MEDS ORDERED: Ketorolac Tromethamine 30 MG/ML VIAL ONE (19:54)
[2019-08-13] MEDS ORDERED: Metoclopramide HCl 10 MG/2 ML VIAL ONE (19:54)
[2019-08-13] MEDS ORDERED: Dextrose 50% Abboject 50 ML SYRINGE ONE (19:54)
[2019-08-13] MEDS ORDERED: Dexamethasone 4 mg/ml Vial ONE (19:54)
[2019-08-13] MEDS ORDERED: Ondansetron PF 4 MG/2 ML Vial ONE (19:54)
[2019-08-13] MEDS ORDERED: Dexamethasone 10 MG/ML VIAL ONE (19:57)
== END 2019-08-13 20:54 | disposition home or self-care (01) ==
LOC: ERS 18:50
DX: R51 Headache (principal); G47.30 Sleep apnea, unspecified; M79.7 Fibromyalgia; Z79.899 Other long term (current) drug therapy; Z86.711 Personal history of pulmonary embolism
CPT/HCPCS: 96365; 96375; J1100; J1885; J2405; J2765; J3010

== ENCOUNTER 2019-08-19 12:16 | Outpatient (CLI) | payer OTHER ==
--- NOTE | 2019-08-19 13:31 | MRI ---
MRI BRAIN WITH AND WITHOUT IV CONTRAST: HISTORY: Intractable migraine without aura. COMPARISON: None CORRELATION: None FINDINGS: No restricted diffusion is seen. No evidence of infarct, hemorrhage, mass, midline shift or abnormal extra-axial fluid collections is noted. No abnormal postcontrast enhancement is seen. The ventricular size is appropriate and the basilar cisterns are patent. There are polyps/mucous retention cysts in the floor of the maxillary sinuses bilaterally IMPRESSION: 1. Normal MRI of the brain. 2. Mucus retention cysts versus polyps in the maxillary sinuses.
== END 2019-08-19 12:17 | disposition home or self-care (01) ==
LOC: BICMRI 12:16
PROVIDERS: ATTEND Family Medicine
DX: G43.011 Migraine without aura, intractable, with status migrainosus (principal)
CPT/HCPCS: 70553

== ENCOUNTER 2020-04-19 12:20 | Emergency (ER) | payer SELFPAY ==
[2020-04-19 12:50] LABS: #Basophils 0.1 thou/uL (0.0-0.2); #Eosinphils 0.3 thou/uL (0.0-0.7); #Lymphocytes 2.8 thou/uL (1.20-3.40); #Monocytes 0.3 thou/uL (0.11-0.59); #Neutrophils 4.5 thou/uL (1.40-6.50); %Basophils 1.7 % (0.0-1.0); %Lymphocytes 35.2 % (21.0-51.0); %Monocytes 3.5 % (0.0-10.0); %Neutrophils 55.5 % (42.0-75.0); Hemoglobin 14.8 g/dL (12.0-16.0); Mean Corpuscular HGB CONC 34.6 g/dL (32.0-36.0); Mean Corpuscular Hemoglobin 32.1 pg (27.0-31.0); Mean Corpuscular Volume 92.9 fL (78.0-98.0); Mean Platelet Volume 8.7 fL (7.4-10.4); Platelet Count 307 thou/uL (130-400); RBC Distribution Width 11.7 % (11.5-14.5); Red Blood Cell (RBC) Count 4.62 mill/uL (4.20-5.40)
[2020-04-19 13:16] LABS: ALT (SGPT) 30 U/L (8-55); AST (SGOT) 24 U/L (5-34); Albumin 4.4 g/dL (3.5-5.0); Alkaline Phosphatase 142 U/L (40-110); Anion Gap 13 mmol/L (10-20); BUN (Urea Nitrogen) 8 mg/dL (7.0-18.7); Bilirubin, Total 0.3 mg/dL (0.2-1.2); Calc. Creatinine Clearance 0 mL/min (70-130); Calcium 9.7 mg/dL (7.8-10.44); Carbon Dioxide 24 mmol/L (22-29); Chloride 105 mmol/L (98-107); Estimated GFR-MDRD 80; Globulin 3.4 g/dL (2.4-3.5); Glucose 107 mg/dL (70-105); Lipase 49 U/L (8-78); Potassium 4.1 mmol/L (3.5-5.1); Protein, Total 7.8 g/dL (6.0-8.3); Sodium 138 mmol/L (136-145)
[2020-04-19] MEDS ORDERED: Lidocaine Viscous Sol 2% 15 ml UD Cup ONE (13:35)
[2020-04-19] MEDS ORDERED: Pantoprazole 40 MG VIAL ONE (13:36)
[2020-04-19] MEDS ORDERED: Metoclopramide HCl 10 MG/2 ML VIAL ONE (13:36)
[2020-04-19] MEDS ORDERED: Mag-Al 1200 mg/1200 mg/30 ML UDCUP ONE (13:36)
--- NOTE | 2020-04-19 15:29 | CT ---
CT ABDOMEN WITH CONTRAST CT PELVIS WITH CONTRAST: DATE: 04/19/2020 HISTORY: 44-year-old female with upper abdominal pain TECHNIQUE: IV injection of iodinated contrast media: Administered Oral contrast media:Administered FINDINGS: Liver: Diffusely low attenuation consistent with fatty liver. Clips in gallbladder fossa. No focal solid mass. Spleen: No splenomegaly.. Pancreas: No mass or surrounding fat stranding.. Adrenals: No mass.. Kidneys: No hydronephrosis or enhancement abnormalities.. Ureters: No dilation. Bladder: As before, distended. Normal, thin rubin. Abdominal aorta: Normal Colon: Moderate volume of stool throughout. No adjacent fat stranding. Appendix: Normal. Free air: None. Free fluid: None. Uterus: Absent. Adnexa: No mass. Thoracic and lumbar spine: Mild chronic anterior wedging of T11 and to a lesser degree T12. Focal kyphosis at T11-12. Rest of th e vertebral body heights are maintained. No high-grade spondylosis in the lumbar spine. IMPRESSION: 1. No major pathology identified.. 2. Hepatic steatosis 3. Distended urinary bladder.
[2020-04-19 15:48] LABS: Bilirubin Negative (Negative); Blood, Urine Negative (Negative); Clarity Clear (Clear); Glucose, Urine (Dipstick) Normal (Negative); Leukocyte Negative Leu/uL (Negative); Nitrite Negative (Negative); Protein, Urine (Dipstick) Negative (Neg-Trace); Urobilinogen Normal mg/dL (Less than 2)
== END 2020-04-19 16:14 | disposition home or self-care (01) ==
LOC: ERS 12:20
DX: R10.12 Left upper quadrant pain (principal); R10.816 Epigastric abdominal tenderness; K58.9 Irritable bowel syndrome, unspecified; G47.30 Sleep apnea, unspecified; R73.03 Prediabetes; Z79.01 Long term (current) use of anticoagulants; Z86.711 Personal history of pulmonary embolism; Z79.899 Other long term (current) drug therapy
CPT/HCPCS: 36415; 74177; 80053; 81003; 83690; 84484; 85025; 93005; 96361; 96374; 96375; C9113; J2765

== ENCOUNTER 2020-11-28 08:04 | Outpatient (CLI) | payer OTHER ==
--- NOTE | 2020-11-28 09:28 | MMO ---
Bilateral MAMMO Bilat Screen [facility]. CLINICAL HISTORY: Patient is 45 years old and is seen for screening. The patient has no family history of breast cancer. The patient has no personal history of cancer. VIEWS: The views performed were: bilateral craniocaudal with tomosynthesis and bilateral mediolateral oblique with tomosynthesis. FILMS COMPARED: The present examination has been compared to prior imaging studies performed at 04/29/2018 and 05/05/2019, and at [facility] on 10/01/2017. This study has been interpreted with the assistance of computer-aided detection. MAMMOGRAM FINDINGS: There are scattered fibroglandular densities. Finding 1: There are stable benign appearing calcifications seen in both breasts. Finding 2: There are stable benign appearing densities seen in both breasts. There are no suspicious masses, suspicious calcifications, or new areas of architectural distortion. IMPRESSION: THERE IS NO MAMMOGRAPHIC EVIDENCE OF MALIGNANCY. A ROUTINE FOLLOW-UP MAMMOGRAM IN 1 YEAR IS RECOMMENDED. THE RESULTS OF THIS EXAM WERE SENT TO THE PATIENT. ACR BI-RADS Category 2 - Benign finding MAMMOGRAPHY NOTE: 1. A negative mammogram report should not delay a biopsy if a dominant of clinically suspicious mass is present. 2. Approximately 10% to 15% of breast cancers are not detected by mammography. 3. Adenosis and dense breasts may obscure an underlying neoplasm. Reported by: JIAN PASTOR MD Electonically Signed: [id number]
== END 2020-11-28 08:05 | disposition home or self-care (01) ==
LOC: BICMAMMO 08:04
PROVIDERS: ATTEND Family Medicine
DX: Z12.31 Encounter for screening mammogram for malignant neoplasm of breast (principal)
CPT/HCPCS: 77063; 77067

== ENCOUNTER 2021-02-17 15:12 | Emergency (ER) | payer OTHER ==
[~2021-02-17 15:12] MED LIST changes: -Iopamidol 370 76% 100 ML VIAL ONE; +Iopamidol-370 76% 500 ML 1 ML ONE
[2021-02-17 15:46] LABS: #Basophils 0.1 thou/uL (0.0-0.2); #Eosinphils 0.1 thou/uL (0.0-0.7); #Lymphocytes 2.6 thou/uL (1.20-3.40); #Monocytes 0.4 thou/uL (0.11-0.59); #Neutrophils 4.5 thou/uL (1.40-6.50); %Basophils 1.3 % (0.0-1.0); %Eosinophils 1.6 % (0.0-10.0); %Lymphocytes 33.8 % (21.0-51.0); %Monocytes 5.5 % (0.0-10.0); %Neutrophils 57.8 % (42.0-75.0); Hemoglobin 13.1 g/dL (12.0-16.0); Mean Corpuscular HGB CONC 32.3 g/dL (32.0-36.0); Mean Corpuscular Hemoglobin 30.3 pg (27.0-31.0); Mean Corpuscular Volume 93.7 fL (78.0-98.0); Mean Platelet Volume 8.1 fL (7.4-10.4); Platelet Count 302 thou/uL (130-400); RBC Distribution Width 11.8 % (11.5-14.5); Red Blood Cell (RBC) Count 4.32 mill/uL (4.20-5.40); White Blood Cell (WBC) Count 7.8 thou/uL (4.8-10.8)
[2021-02-17] MEDS ORDERED: Ketorolac Tromethamine 30 MG/ML VIAL ONE (16:02)
[2021-02-17] MEDS ORDERED: Ondansetron PF 4 MG/2 ML Vial ONE (16:02)
[2021-02-17 16:07] LABS: ALT (SGPT) 23 U/L (8-55); AST (SGOT) 21 U/L (5-34); Albumin 4.4 g/dL (3.5-5.0); Alkaline Phosphatase 129 U/L (40-110); Anion Gap 13 mmol/L (10-20); BUN (Urea Nitrogen) 8 mg/dL (7.0-18.7); Bilirubin, Total 0.4 mg/dL (0.2-1.2); Calc. Creatinine Clearance 0 mL/min (70-130); Calcium 9.4 mg/dL (7.8-10.44); Carbon Dioxide 28 mmol/L (22-29); Chloride 104 mmol/L (98-107); Globulin 3.3 g/dL (2.4-3.5); Glucose 123 mg/dL (70-105); Lipase 92 U/L (8-78); Potassium 3.8 mmol/L (3.5-5.1); Protein, Total 7.7 g/dL (6.0-8.3); Sodium 141 mmol/L (136-145)
== END 2021-02-17 17:53 | disposition home or self-care (01) ==
LOC: ERS 15:12
DX: R07.9 Chest pain, unspecified (principal); R10.13 Epigastric pain; G47.30 Sleep apnea, unspecified; E11.9 Type 2 diabetes mellitus without complications; M79.7 Fibromyalgia; Z86.711 Personal history of pulmonary embolism
CPT/HCPCS: 36415; 71045; 71275; 80053; 83690; 84484; 85025; 85379; 93005; 96374; 96375; J1885; J2405; Q9967

== ENCOUNTER 2021-07-11 19:51 | Emergency (ER) | payer OTHER ==
[2021-07-11 20:34] LABS: #Basophils 0.1 thou/uL (0.0-0.2); #Eosinphils 0.2 thou/uL (0.0-0.7); #Lymphocytes 3.7 thou/uL (1.20-3.40); #Monocytes 0.6 thou/uL (0.11-0.59); #Neutrophils 5.2 thou/uL (1.40-6.50); %Basophils 0.7 % (0.0-1.0); %Eosinophils 1.8 % (0.0-10.0); %Lymphocytes 38.1 % (21.0-51.0); %Monocytes 5.8 % (0.0-10.0); %Neutrophils 53.5 % (42.0-75.0); Hemoglobin 14.3 g/dL (12.0-16.0); Mean Corpuscular HGB CONC 33.4 g/dL (32.0-36.0); Mean Corpuscular Hemoglobin 31.4 pg (27.0-31.0); Mean Platelet Volume 8.9 fL (7.4-10.4); Platelet Count 309 thou/uL (130-400); RBC Distribution Width 12.1 % (11.5-14.5); Red Blood Cell (RBC) Count 4.56 mill/uL (4.20-5.40); White Blood Cell (WBC) Count 9.8 thou/uL (4.8-10.8)
[2021-07-11 21:08] LABS: ALT (SGPT) 34 U/L (8-55); AST (SGOT) 22 U/L (5-34); Albumin 4.4 g/dL (3.5-5.0); Alkaline Phosphatase 126 U/L (40-110); Anion Gap 10 mmol/L (10-20); BUN (Urea Nitrogen) 6 mg/dL (7.0-18.7); Bilirubin, Total 0.3 mg/dL (0.2-1.2); Calc. Creatinine Clearance 0 mL/min (70-130); Calcium 10.1 mg/dL (7.8-10.44); Carbon Dioxide 30 mmol/L (22-29); Chloride 105 mmol/L (98-107); Globulin 3.4 g/dL (2.4-3.5); Glucose 91 mg/dL (70-105); Protein, Total 7.8 g/dL (6.0-8.3); Sodium 141 mmol/L (136-145)
[2021-07-11 21:30] LABS: BHCG - Serum Negative (NEGATIVE); Pregs Control Background? CLEAR/WHITE (CLR/WHITE); Pregs Control Bar Appear? YES (CONTROL BAR)
[2021-07-11] MEDS ORDERED: Ondansetron PF 4 MG/2 ML Vial ONE (22:20)
[2021-07-11] MEDS ORDERED: Ketorolac Tromethamine 30 MG/ML VIAL ONE (23:12)
== END 2021-07-11 23:48 | disposition home or self-care (01) ==
LOC: ERS 19:51
DX: R07.89 Other chest pain (principal); G47.30 Sleep apnea, unspecified; E11.9 Type 2 diabetes mellitus without complications
CPT/HCPCS: 36415; 71045; 71275; 80053; 84484; 84703; 85025; 85379; 93005; 96374; 96375; J1885; J2405; Q9967

== ENCOUNTER 2021-09-04 07:41 | Outpatient (CLI) | payer OTHER | END 2021-09-04 07:42 | disposition home or self-care (01) | LOC: NM 07:41 | PROVIDERS: ATTEND Internal Medicine Gastroenterology | DX: R10.9 Unspecified abdominal pain (principal); R11.0 Nausea; Z90.49 Acquired absence of other specified parts of digestive tract | CPT/HCPCS: 78227; A9537 ==

== ENCOUNTER 2022-01-04 07:54 | Outpatient (CLI) | payer OTHER | END 2022-01-04 07:55 | disposition home or self-care (01) | LOC: BICMAMMO 07:54 | PROVIDERS: ATTEND Family Medicine | DX: Z12.31 Encounter for screening mammogram for malignant neoplasm of breast (principal) | CPT/HCPCS: 77063; 77067 ==